=== PATIENT | male | born 1950 | race African-American/Black ===

== ENCOUNTER → 2019-02-20 | Outpatient (CLI) | payer OTHER ==
[~2019-02-20] VITALS: Ht 170.2 cm; Wt 70.8 kg
[~2019-02-20] MED LIST: ADVIL200 M3 PO; ASPIR 8181 MG PO; FLAXSEED OIL1000 MG PO; REFRESH TEARS15 ML OPHTHALMIC; SIMVASTATIN40 MG PO
--- NOTE | 2019-02-21 13:59 | P ---
[facility] [place] [place] [address] PROCEDURE REPORT Name: ANA LEDEZMA Room #: REG [facility]#: [id number] Admission: 02/20/19 ������������������ Attend Phys: Kwadwo De La Cruz MD Discharge: ������������������ Date of : 46 Report #: [id number] THIS REPORT FOR: //name// CC: Octaviano De La Cruz BRIEF HISTORY: The patient is a 68-year-old male with a history of colon adenomas. Also, his brother had colon cancer when he was in his late 60s. PREOPERATIVE DIAGNOSIS: High risk screening colonoscopy due to history of colon polyps and family history. POSTOPERATIVE DIAGNOSES: 1. Colon polyps x 3. 2. Moderate sigmoid diverticulosis coli. 3. Internal hemorrhoids. MEDICATIONS: Deep sedation with propofol per Anesthesia. SPECIMENS: 1. Polyps x 2, hepatic flexure. 2. Polyp from 50 cm. ESTIMATED BLOOD LOSS: 3 mL. PROCEDURE: Colonoscopy to cecum and terminal ileum with snare polypectomy and biopsy. FINDINGS: Prior to propofol sedation, procedure of colonoscopy discussed with the patient as well as potential risks and its complications. He indicates he understands and desires to proceed. DESCRIPTION OF PROCEDURE: With the patient in left lateral decubitus position, digital examination was completed which revealed no abnormalities. Subsequently, the Olympus video colonoscope was introduced into the rectum and advanced under direct vision to the cecum. Done with minimal difficulty. The cecum was identified by the ileocecal valve and the appendiceal orifice. I was able to visualize the distal segment of terminal ileum, which was inspected and noted to be unremarkable. At that point, the scope was slowly withdrawn and careful circumferential views obtained including retroflexion of the scope in the ascending colon. Upon slow withdrawal of the scope, the prep was excellent. Mucosa was within normal limits, normal vascular pattern, normal light reflex. As we withdrew the scope, no abnormalities were noted until the hepatic flexure was reached at which 2 small sessile polyps were seen. The largest one was about 4-5 mm, the other was slightly smaller. They were both removed by cold snare polypectomy and recovered. The scope was further withdrawn and no [facility] [address] [place] [address] PROCEDURE REPORT Name: ANA LEDEZMA Room #: REG [facility].#: [id number] Admission: 02/20/19 ������������������ Attend Phys: Kwadwo De La Cruz MD Discharge: ������������������ Date of : 46 Report #: [id number] additional abnormalities were noted until the descending colon was reached at about 50 cm, a diminutive polyp was seen and removed with biopsy forceps. Scope was further withdrawn and no additional neoplastic lesions were seen. However, there was noted to be moderate sigmoid diverticular disease without endoscopic evidence of diverticulitis. The scope was withdrawn in the rectum. No abnormalities were seen. Upon retroflexion, small hemorrhoids were seen. Scope was withdrawn. The patient tolerated the procedure well. CONDITION OF THE PATIENT UPON DISCHARGE: Following procedure, the patient drowsy, aroused, conversant and will be discharged home when fully ambulatory. INSTRUCTIONS TO THE PATIENT AND FAMILY AT THE TIME OF DISCHARGE: We will follow up on pathology. If all 3 are adenomas, he is to return in 3 years, otherwise return in 5 years for followup colonoscopy. He will return to care of Dr. Octaviano Mckee, return to see me as needed. Last colonoscopy was approximately 5 years ago. Withdrawal time from cecum was 17 minutes 45 seconds. ��������������������������������������������� <ELECTRONICALLY SIGNED> ���������������������������������������� By: Kwadwo De La Cruz MD ��������������������������������������������� 02/21/19 1359 [id number] Kwadwo De La Cruz MD /nt
--- NOTE | 2019-02-21 17:06 | PATH ---
[facility] [address] [place] [address] PATHOLOGY RPT PROCEDURE Name: ANA LEDEZMA CHELE Room #: REG [facility].#: [id number] ������������������ Admission: 02/20/19 ������������������ Date of : 46 Discharge: Report #: [id number] Path Case #: [id number] [facility] Accession Number: [id number] . 01 Material submitted: . PART A: hepatic flexure - POLYP AT HEPATIC FLEXURE X2 PART B: colon - BX POLYP AT 50 CM. Modifiers: 50 CM . 01 Clinical history: . Preop DX: Hx polyps, hemorrhoids, diverticulosis Postop DX: Colon polyps, diverticulosis, hemorrhoids . 02 Diagnosis: A. Polyp x 2, hepatic flexure, endoscopic biopsy: - Tubular adenoma. - Negative for high-grade dysplasia. . B. Polyp, at 50 cm, endoscopic biopsy: - Tubular adenoma. - Negative for high-grade dysplasia. (IUV:pit 02/21/2019) QTP/02/21/2019 . 02 Electronically signed: . Paula Edge MD, Pathologist NPI- [id number] . 01 Gross description: . A. Received in formalin labeled "Ana Ledezma, polyp at hepatic flexure x2," are three segments of yellow-taylor soft tissue ranging from 0.3 x 0.2 x 0.1 cm to 0.6 x 0.3 x 0.3 cm in greatest dimensions. The specimen is submitted entirely in cassette A1. . B. Received in formalin labeled "Ana Ledezma, BX polyp at 50 cm," are two segments of taylor soft tissue measuring 0.2 x 0.2 x 0.1 cm and 0.4 0.3 x 0.3 cm in greatest dimensions. The specimen is submitted entirely in cassette B1. (DAC; 02/20/2019) XDC/XDC . 02 Pathologist provided ICD-10: D12.3, D12.6 . 02 CPT . 936115, 568191 Specimen Comment: A courtesy copy of this report has been sent to Specimen Comment: [phone], [place] [address] PATHOLOGY RPT PROCEDURE Name: ANA LEDEZMA CHELE Room #: REG [facility]#: [id number] ������������������ Admission: 02/20/19 ������������������ Date of : 46 Discharge: Report #: [id number] Path Case #: [id number] Specimen Comment: Report sent to / DR GRAF Performed at: [address], [place], [place] [id number] MD Dov Singleton MD Phone: [phone] Performed at: [address] [id number] MD Paula Edge MD Phone: [phone]
== END | disposition home or self-care (01) ==
LOC: GI 06:25
DX: Z12.11 Encounter for screening for malignant neoplasm of colon (principal); Z86.010 Personal history of colon polyps; Z80.0 Family history of malignant neoplasm of digestive organs; D12.3 Benign neoplasm of transverse colon; D12.5 Benign neoplasm of sigmoid colon; K57.30 Diverticulosis of large intestine without perforation or abscess without bleeding; K64.8 Other hemorrhoids; E78.5 Hyperlipidemia, unspecified; Z90.49 Acquired absence of other specified parts of digestive tract; Z98.41 Cataract extraction status, right eye; Z98.42 Cataract extraction status, left eye; Z98.890 Other specified postprocedural states; Z79.899 Other long term (current) drug therapy; Z79.82 Long term (current) use of aspirin
CPT/HCPCS: 62110; 62900